=== PATIENT | female | born 1975 | race Caucasian/White ===

== ENCOUNTER → 2024-11-09 10:43 | Outpatient (CLI) | payer OTHER, BC, SELFPAY ==
--- NOTE | 2024-11-09 10:46 | DI.MG.S_ITS ---
MM screening mammo BI: 11/09/2024. BI-RADS: 0 CLINICAL: 49-year old female for bilateral screening mammogram. Tyrer-Cuzick lifetime risk of 26.9%. Current reported family history of breast cancer: mother. PRIOR EXAMS: None. This is a baseline mammogram. MAMMOGRAPHY TECHNIQUE: 2D and 3D (tomosynthesis) digital mammographic views obtained, with additional images as needed for full coverage. Current study was also evaluated with a Computer Aided Detection (CAD) system. DENSITY C. The breasts are heterogeneously dense, which may obscure small masses. MAMMOGRAPHY FINDINGS Right: No suspicious mass, asymmetry, microcalcification, or other abnormality seen. Left: CC only, Inner, CC slice #53/65, Posterior depth: Asymmetry needing additional imaging evaluation. This is seen at a similar level as skin pores on the tomosynthesis images, and may correspond to a dermal lesion or mole. IMPRESSION: Right * No evidence of malignancy. Left (Asymmetry): CC only, Inner, CC slice #53/65, Posterior depth * Incomplete - asymmetry needing additional imaging evaluation. RECOMMENDATIONS Left: CC only, Inner, Posterior depth * Further evaluation with diagnostic mammography and diagnostic ultrasound (Consider tangential views on diagnostic mammogram and correlation with direct visualization on physical exam to see if the asymmetry corresponds to a mole). OVERALL ASSESSMENT CATEGORY BI-RADS-0: Incomplete - Need Additional Imaging Evaluation. ELECTRONICALLY SIGNED: Alison Escamilla M.D. on 11/11/2024 at 06:22:25 PM PT Interpreting Station ID: [id number]
== END ==
PROVIDERS: Family Provider Family Medicine; PCP Family Medicine; Referring Provider Family Medicine; Visit Provider Family Medicine
DX: Z12.31 Encounter for screening mammogram for malignant neoplasm of breast (principal); Z80.3 Family history of malignant neoplasm of breast; R92.333 Mammographic heterogeneous density, bilateral breasts
CPT/HCPCS: 77063; 77067